=== PATIENT | female | born 1960 | race Two or more races ===

== ENCOUNTER 2024-02-23 13:02 | Inpatient (IN) | payer OTHER ==
[2024-02-23] MEDS ORDERED: ACETAMINOPHEN INJECTION 100 ML IVPB ONE (14:28)
[2024-02-23] MEDS: LACTATED RINGERS SOLUTION 1000 ML INFUS.BAG IV ONE (14:52)
[2024-02-23] MEDS: ACETAMINOPHEN 1000 MG/100 ML BAG IVPB ONE (14:52)
[2024-02-23 14:56] LABS: INR 1.01 (0.83-1.09); PROTHROMBIN TIME (PATIENT) 11.7 SEC (9.7-13.0)
[2024-02-23 14:59] LABS: ACTIVATED PTT 28.2 SECONDS (25.2-36.5); HEMATOCRIT 35.5 % (32.4-45.2); HEMOGLOBIN 11.5 G/dL (10.7-15.3); MCH 25.3 pg (25.7-33.7); MCHC 32.3 g/dl (32.0-36.0); MEAN CELL VOLUME 78.3 fl (80-96); MEAN PLT VOLUME 8.6 fl (7.5-11.1); PLATELET COUNT 297.6 10^3/uL (134-434); RBC 4.54 10^6/uL (3.60-5.2); RDW 15.4 % (11.6-15.6); WHITE BLOOD COUNT 18.7 10^3/uL (4.0-10.8)
[2024-02-23 15:07] LABS: BILIRUBIN,TOTAL 0.4 mg/dl (0.2-1); CALCIUM 9.2 mg/dl (8.5-10.1); CREATININE 1.2 mg/dl (0.6-1.3); MAGNESIUM 1.7 mg/dL (1.8-2.4); POTASSIUM 4.3 mmol/L (3.5-5.1); TOT PROT 6.5 g/dl (6.4-8.2)
[2024-02-23 15:08] LABS: EPITHELIAL CELLS 0-5 /hpf
[2024-02-23 15:15] LABS: PLATELET ESTIMATE ADEQUATE
[2024-02-23 15:53] LABS: VENOUS BASE EXCESS -3.9 mmol/L (-2-2); VENOUS PCO2 35.4 mmHg (38-52); VENOUS PH 7.384 (7.310-7.410)
[2024-02-23] MEDS ORDERED: cefTRIAXone SODIUM 1 GM VIAL ONE (16:02)
[2024-02-23] MEDS ORDERED: MAGNESIUM SULFATE IN WATER 2 GM/50 ML IVPB IVPB ONE (16:02)
[2024-02-23] MEDS: CEFTRIAXONE 1 GM in DEXTROSE 5%-WATER - 100 ML IVPB ONE (16:29)
[2024-02-23] MEDS: MAGNESIUM SULF 50% (8.12 MEQ/2 ML-1 GM VIAL) IVPB ONE (16:29)
[2024-02-23 20:25] VITALS: BMI 22.5
[2024-02-23] MEDS: LACTATED RINGERS SOLUTION 1,000 ML IV SCH (20:28)
[2024-02-23] MEDS ORDERED: DOCUSATE SODIUM 100 MG CAPSULE (FP) PO PRN (21:10)
[2024-02-23] MEDS: INSULIN (NOVOLOG) ASPART 100 UNITS/ML 10ML VIAL SQ ONE (22:30)
[2024-02-23] MEDS: oxyCODONE HCL 5 MG TABLET PO PRN (22:31)
[2024-02-24] MEDS: INSULIN ASPART SLIDING SCALE (NOVOLOG) 1 VIAL SQ SCH (06:52)
[2024-02-24] MEDS: CEFTRIAXONE 1 GM in DEXTROSE 5%-WATER - 50 ML IVPB ONE (07:01)
[2024-02-24 08:02] LABS: INR 0.97 (0.83-1.09); PROTHROMBIN TIME (PATIENT) 11.2 SEC (9.7-13.0)
[2024-02-24 08:24] LABS: HEMATOCRIT 28.8 % (32.4-45.2); HEMOGLOBIN 9.2 G/dL (10.7-15.3); MCH 24.9 pg (25.7-33.7); MCHC 31.9 g/dl (32.0-36.0); MEAN CELL VOLUME 77.8 fl (80-96); MEAN PLT VOLUME 9.2 fl (7.5-11.1); PLATELET COUNT 267.1 10^3/uL (134-434); RDW 15.3 % (11.6-15.6); WHITE BLOOD COUNT 14.5 10^3/uL (4.0-10.8)
[2024-02-24 09:02] LABS: ALBUMIN 3.4 g/dl (3.4-5.0); CALCIUM 8.9 mg/dl (8.5-10.1); CREATININE 1.3 mg/dl (0.6-1.3); MAGNESIUM 2.4 mg/dL (1.8-2.4); PHOSPHOROUS 4.4 (2.5-4.9); POTASSIUM 4.8 mmol/L (3.5-5.1); TOT PROT 5.4 g/dl (6.4-8.2)
[2024-02-24 09:35] LABS: BILIRUBIN,TOTAL 0.3 mg/dl (0.2-1)
[2024-02-24] MEDS ORDERED: CEFTRIAXONE 1 GM in DEXTROSE 5%-WATER - 50 ML IVPB SCH (10:00)
[2024-02-24] MEDS: SODIUM CHLORIDE 1,000 ML IV SCH (10:31)
[2024-02-24] MEDS: ENOXAPARIN NA (PORCINE) 40 MG/0.4 ML DISP.SYRIN SQ SCH (10:32)
[2024-02-24 11:19] LABS: PLATELET ESTIMATE ADEQUATE
[2024-02-24] MEDS: INSULIN (LEVEMIR) 100 UNITS/ML UNITS SQ SCH (21:46)
[2024-02-24] MEDS: ACETAMINOPHEN 325 MG TABLET (FP) PO PRN (23:18)
[2024-02-25 08:19] LABS: HEMOGLOBIN 10.9 G/dL (10.7-15.3); MEAN CELL VOLUME 78.3 fl (80-96); PLATELET COUNT 288.4 10^3/uL (134-434); RBC 4.34 10^6/uL (3.60-5.2); WHITE BLOOD COUNT 9.2 10^3/uL (4.0-10.8)
[2024-02-25 08:28] LABS: INR 0.97 (0.83-1.09); PROTHROMBIN TIME (PATIENT) 11.2 SEC (9.7-13.0)
[2024-02-25] MEDS: CEFTRIAXONE 1 GM in DEXTROSE 5%-WATER - 50 ML IVPB SCH (09:28)
[2024-02-25 09:44] LABS: ALBUMIN 3.8 g/dl (3.4-5.0); BILIRUBIN,TOTAL 0.3 mg/dl (0.2-1); CALCIUM 9.2 mg/dl (8.5-10.1); CREATININE 1.1 mg/dl (0.6-1.3); MAGNESIUM 1.9 mg/dL (1.8-2.4); PHOSPHOROUS 4.4 (2.5-4.9); POTASSIUM 4.4 mmol/L (3.5-5.1); TOT PROT 6.1 g/dl (6.4-8.2)
[2024-02-25] MEDS: MEROPENEM 1 GM in DEXTROSE 5%-WATER 100 ML IVPB SCH (12:14)
[2024-02-25] MEDS: INSULIN (LEVEMIR) 100 UNITS/ML UNITS SQ SCH (21:17)
[2024-02-26] MEDS: INSULIN ASPART SLIDING SCALE (NOVOLOG) 1 VIAL SQ SCH (06:02)
[2024-02-26] MEDS: INSULIN (LEVEMIR) 100 UNITS/ML UNITS SQ SCH (09:30)
[2024-02-27 11:53] LABS: BASO % 0.6 % (0-2.0); EOS % 2.4 % (0-4.5); HEMATOCRIT 32.8 % (32.4-45.2); HEMOGLOBIN 10.6 GM/dL (10.7-15.3); LYMPH % 20.1 % (8-40); MCH 25.2 pg (25.7-33.7); MCHC 32.2 g/dl (32.0-36.0); MEAN CELL VOLUME 78.1 fl (80-96); MEAN PLT VOLUME 8.3 fl (7.5-11.1); MONO % 6.7 % (3.8-10.2); NEUT % 70.2 % (42.8-82.8); PLATELET COUNT 330 10^3/uL (134-434); RDW 14.7 % (11.6-15.6); WHITE BLOOD COUNT 9.1 K/mm3 (4.0-10.0)
[2024-02-27 13:03] LABS: ALBUMIN 2.9 g/dl (3.4-5.0); BILIRUBIN,TOTAL 0.4 mg/dL (0.2-1); BLOOD UREA NITROGEN 11.8 mg/dL (7-18); CALCIUM 9.3 mg/dL (8.5-10.1); CREATININE 1.1 mg/dL (0.55-1.3); POTASSIUM 4.5 mmol/L (3.5-5.1); TOT PROT 6.6 g/dl (6.4-8.2)
[2024-02-27] MEDS: ERTAPENEM SODIUM 1 GM in SODIUM CHLORIDE 50 ML IVPB SCH (17:05)
[2024-02-28 08:32] LABS: BASO % 0.9 % (0-2.0); EOS % 2.6 % (0-4.5); HEMATOCRIT 33.1 % (32.4-45.2); HEMOGLOBIN 10.8 GM/dL (10.7-15.3); LYMPH % 27.4 % (8-40); MCH 25.4 pg (25.7-33.7); MCHC 32.7 g/dl (32.0-36.0); MEAN CELL VOLUME 77.7 fl (80-96); MEAN PLT VOLUME 8.1 fl (7.5-11.1); MONO % 6.2 % (3.8-10.2); NEUT % 62.9 % (42.8-82.8); PLATELET COUNT 368 10^3/uL (134-434); RBC 4.26 M/mm3 (3.60-5.2); RDW 14.6 % (11.6-15.6); WHITE BLOOD COUNT 9.3 K/mm3 (4.0-10.0)
[2024-02-28 11:16] LABS: ALBUMIN 3.1 g/dl (3.4-5.0); BILIRUBIN,TOTAL 0.3 mg/dL (0.2-1); BLOOD UREA NITROGEN 10.3 mg/dL (7-18); CALCIUM 9.6 mg/dL (8.5-10.1); POTASSIUM 4.6 mmol/L (3.5-5.1); TOT PROT 6.9 g/dl (6.4-8.2)
[2024-02-28 12:20] VITALS: RESP 18
[2024-02-29 13:24] VITALS: BP 149/76; PULSE 81; TEMP 98.9
== END 2024-02-29 17:53 | disposition home or self-care (01) | DRG 463 ==
LOC: FER 13:02 → FM/S 16:47 → J6S 02-25 12:24
PROVIDERS: ADMIT Internal Medicine
PROC: 0X9K0ZZ Drainage of Left Hand, Open Approach (ICD-10-PCS; principal; 2024-02-23)
DX: N13.6 Pyonephrosis (principal); M25.572 Pain in left ankle and joints of left foot; L03.012 Cellulitis of left finger; E11.65 Type 2 diabetes mellitus with hyperglycemia; I10 Essential (primary) hypertension; E87.1 Hypo-osmolality and hyponatremia; N31.9 Neuromuscular dysfunction of bladder, unspecified; E78.5 Hyperlipidemia, unspecified; E11.42 Type 2 diabetes mellitus with diabetic polyneuropathy; D72.829 Elevated white blood cell count, unspecified
CPT/HCPCS: 36415; 71045-TC-FY; 73610-TC-LT-FY; 73630-TC-LT; 74177-TC; 80053; 81003; 81015; 82010; 82803; 82962; 83605; 83735; 84100; 84484; 85025; 85027; 85610; 85730; 86850; 86900; 86901; 87040; 87086; 87186; 93005; 99285-25; J0131; Q9967